=== PATIENT | female | born 1990 | race Caucasian/White ===

== ENCOUNTER 2025-03-29 07:05 | Emergency (ER) | payer SELFPAY ==
--- NOTE | 2025-03-29 07:06 | XR_ITS ---
WS: [id number] Portable AP upright chest, 03/29/2025 Clinical Data: cp Comparison: None. Findings: No nodules, masses or effusions are seen. The heart is normal. The pulmonary vascularity is not increased. No pneumonia or pneumothorax is seen. Monitor leads are on the chest wall. XR/XR chest 1V portable 10254 Impression: Negative chest.
--- NOTE | 2025-03-29 07:06 | ECG_ITS ---
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
[2025-03-29 07:11] VITALS: BP 116/68; PULSE 55; RESP 16; TEMP 36.6; O2SAT 98; BMI 31.1
--- NOTE | 2025-03-29 07:20 | ED_ITS ---
HPI - Chest Pain 2 General: Chief Complaint: Chest Pain Stated Complaint: cp Time Seen by Provider: 03/29/25 07:06 Source: patient Mode of arrival: ambulatory History of Present Illness: 34-year-old female states that she has b een having intermittent sharp chest pains over the last 2 days. States it has been random sharp stabbing pains that resolved shortly she denies any pain currently. She denies any cough fever shortness of breath denies any radiation of pain denies any vomiting. Related Data Allergies Allergy/AdvReac Type Severity Reaction Status Date / Time No Known Allergies Allergy Verified 03/29/25 07:11 Review of Systems 2 Card: Reports: chest pain [facility] ED 2 Female Reproductive History: Date of last menstrual period: 03/03/25 Physical Exam 2 Const: COMMON NORMALS: no acute distress, patient oriented x3 and healthy appearing HENMT: COMMON NORMALS: normocephalic and atraumatic HEAD & SCALP: n ormocephalic and atraumatic Eye: COMMON NORMALS: conjunctivae normal CONJUNCTIVA: Yes conjunctivae normal Neck/C-Spine: COMMON NORMALS: full ROM and supple Chest: COMMONS NORMALS: normal inspection of the chest and normal palpation of entire chest wall Resp: COMMON NORMALS: normal respiratory effort, No retractions, No use of accessory muscles and clear to auscultation bilaterally AUSCULTATION: clear to auscultation bilaterally Cardio: COMMON NORMALS: regular rate, regular rhythm and No murmurs present (Cardio) RATE: regular rate RHYTHM: regular rhythm Extremity: COMMON NORMALS: normal to inspection and full ROM Neuro: COMMON NORMALS: patient oriented x3, moves all extremities and no focal motor deficits Psych: COMMON NORMALS: mental status grossly normal, Normal thought process present and cooperative THOUGHT PROCESS: Normal thought process present Skin: COMMON NORMALS: no rashes or lesions noted and no wounds GENERAL SKIN EXAM: no rashes or lesions noted Course 2 Vital Signs: Vital signs: Vital Signs Temperature 97.8 F 03/29/25 07:11 Pulse Rate 55 L 03/29/25 07:11 Respiratory Rate 16 03/29/25 07:11 Blood Pressure 116/68 03/29/25 07:11 Pulse Oximetry 98 03/29/25 07:11 Oxygen Delivery Me thod Room Air 03/29/25 07:11 MDM - Chest Pain Medical Decision Making Patient presents for chest pain going on for 2 days is atypical in nature. Life-threatening etiologies like pulmonary embolism or ACS pneumothorax were considered. I feel these are unlikely her heart rate here is negative she has no shortness of breath no signs of pulmonary embolism. Initial troponin is normal her heart score is 0 no signs of ACS. Chest x-ray was reviewed by me and showed no acute abnormalities no signs of pneumonia or dissection. She has been pain-free here pains intermittent could be gastric in nature or esophageal spasms we will start her on Protonix I went over her labs and imaging EKG with her she is to follow-up with PCP and return if worsening she understands agrees to plan. Medical Records I reviewed the patient's medical records. Lab Data I reviewed the patient's lab results. 03/29/25 07:32 03/29/25 07:32 Radiology Impressions Chest X-Ray 03/29/25 07:06 Impression: Negative chest. Laboratory Results WBC 8.97 10^3/uL (3.29-11.43) 03/29/25 07:32 RBC 4.49 10^6/uL (3.85-5.65) 03/29/25 07:32 Hgb 13.80 g/dL (11.27-16.99) 03/29/25 07:32 Hct 41.5 % (36-47) 03/29/25 07:32 MCV 92.4 fl (85-98) 03/29/25 07:32 MCH 30.7 pg (27-33) 03/29/25 07:32 MCHC 33.3 g/dL (30-55) 03/29/25 07:32 RDW 13.3 % (12.1-15.1) 03/29/25 07:32 Plt Count 218 10^3/cmm (157-399) 03/29/25 07:32 MPV 9.7 fL (7.4-10.4) 03/29/25 07:32 Neut % (Auto) 61.3 % 03/29/25 07:32 Lymph % (Auto) 23.7 % 03/29/25 07:32 [place] % (Auto) 10.6 % 03/29/25 07:32 Eos % (Auto) 3.0 % 03/29/25 07:32 Baso % (Auto) 0.8 % 03/29/25 07:32 Neut # (Auto) 5.50 10^3/uL (1.8-7.7) 03/29/25 07:32 Lymph # (Auto) 2.1 10^3/uL (0.8-4.8) 03/29/25 07:32 [place] # (Auto) 1.0 10^3/uL (0.2-0.9) H 03/29/25 07:32 Eos # (Auto) 0.3 10^3/uL (0.0-0.8) 03/29/25 07:32 Baso # (Auto) 0.1 10^3/uL (0.0-0.1) 03/29/25 07:32 Nucleated RBC % (auto) 0 % 03/29/25 07:32 Nucleated RBCs # 0.0 /100WBC 03/29/25 07:32 Sodium 139 mmol/L (136-145) 03/29/25 07:32 Potassium 4.6 mmol/L (3.5-5.1) 03/29/25 07:32 Chloride 105 mmol/L (98-107) 03/29/25 07:32 Carbon Dioxide 21 mmol/L (22-29) L 03/29/25 07:32 Anion Gap 17.6 (5-19) 03/29/25 07:32 BUN 16 mg/dL (6-20) 03/29/25 07:32 Creatinine 0.7 mg/dL (0.5-0.9) 03/29/25 07:32 GFR Calculation 96.4 mL/min (90-130) 03/29/25 07:32 Glucose 87 mg/dL (65-115) 03/29/25 07:32 Calculated Osmolality 289 mOsm/kg (285-295) 03/29/25 07:32 Calcium 8.9 mg/dL (8.5-10.5) 03/29/25 07:32 Total Bilirubin 0.6 mg/dL (0.15-1.2) 03/29/25 07:32 AST 19 U/L (0-32) 03/29/25 07:32 ALT 17 U/L (0-33) 03/29/25 07:32 Alkaline Phosphatase 79 U/L (35-105) 03/29/25 07:32 Troponin T Baseline < 6 ng/L (0-10) 03/29/25 07:32 Total Protein 6.5 g/dL (6.6-8.7) L 03/29/25 07:32 Albumin 4.4 g/dL (3.5-5.2) 03/29/25 07:32 Globulin 2.1 g/dL (1.3-4.6) 03/29/25 07:32 Lipase 31 U/L (13-60) 03/29/25 07:32 XR interpretation done by ED provider, pending radiology final review ED provider radiology interpretation(s): cxr: no acute abnormality EKG Data EKG 1: I personally reviewed and interpreted this EKG as follows: EKG interpretation date: 03/29/25 EKG interpretation time: 07:12 Interpretation: sinus katelin hr [address] elevation qrs 104 qtc 397 Discharge Plan Discharge Patient Disposition: Home Clinical Impression: Chest pain Condition: Stable Discharge Orders: Discharge ED (Routine); Ordered 03/29/25 Ordered By: Kathryn Crowder Discharge Diet: Advance as tolerated Discharge Activity: Resume usual activity Patient Instructions: Chest Pain (ED) Print Language: Japanese Coding Level of Care Code ED [employer] Assistant for Chg Fwd Heart Score HEART Score Components History: Slightly Suspicous EKG: Normal Age: Less than 45 yrs Risk Factors: No Risk Factors Known Troponin: Baseline Trop <16 ng/L HEART Score RESULT HEART Score: 0
[2025-03-29 07:38] LABS: Hematocrit 41.5 % (36-47); Hemoglobin 13.80 g/dL (11.27-16.99); Mean Corpuscular HGB Conc 33.3 g/dL (30-55); Mean Corpuscular Hemoglobin 30.7 pg (27-33); Mean Corpuscular Volume 92.4 fl (85-98); Nucleated Red Blood Cells % 0 %; Platelet Count 218 10^3/cmm (157-399); Red Blood Count 4.49 10^6/uL (3.85-5.65); White Blood Count 8.97 10^3/uL (3.29-11.43)
[2025-03-29] MEDS: lidocaine 2% viscous 15 ML, aluminum-mag hydrox-simethicon 30 ML, sucralfate oral liq 1 GM PO (07:43)
[2025-03-29 07:59] LABS: Troponin(5th) Baseline < 6 ng/L (0-10)
[2025-03-29 08:08] LABS: Alanine Aminotransferase 17 U/L (0-33); Albumin Level 4.4 g/dL (3.5-5.2); Alkaline Phosphatase 79 U/L (35-105); Blood Urea Nitrogen 16 mg/dL (6-20); Calcium 8.9 mg/dL (8.5-10.5); Carbon Dioxide 21 mmol/L (22-29); Chloride 105 mmol/L (98-107); Creatinine Clr Calc Pharmacy 109.9059; Globulin 2.1 g/dL (1.3-4.6); Glucose 87 mg/dL (65-115); Lipase 31 U/L (13-60); Osmolality Calculated 289 mOsm/kg (285-295); Sodium 139 mmol/L (136-145); Total Protein 6.5 g/dL (6.6-8.7)
[2025-03-29 08:11] LABS: Anion Gap 17.6 (5-19); Aspartate Amino Transferase 19 U/L (0-32); Potassium 4.6 mmol/L (3.5-5.1)
[2025-03-29 08:25] VITALS: BP 115/70; PULSE 54; RESP 12; O2SAT 98
== END 2025-03-29 08:26 | disposition home or self-care (01) ==
PROVIDERS: Emergency Provider Emergency Medicine
DX: R07.9 Chest pain, unspecified (principal)
CPT/HCPCS: 36415; 71045; 80053; 83690; 84484; 85025; 93005; 99285; J9999